=== PATIENT | female | born 1975 | race Caucasian/White ===

== ENCOUNTER 2016-09-05 14:37 | Emergency (ER) | payer MEDICAID ==
[~2016-09-05] VITALS: Ht 160 cm; Wt 72.5 kg
[~2016-09-05 14:37] MED LIST: ASPI-664 PO; ATOR80TA75 PO; LOSA25TA2 PO; METF1000 PO; OMEG-87 PO; SITA25TA3 PO
[2016-09-05 14:54] VITALS: Ht 160 cm; Wt 72.5 kg
[2016-09-05 15:45] LABS: BASOPHIL # 0.1 10^3/ul (0.0-0.1); BASOPHILS % 0.6 % (0.0-2.0); EOSINOPHILS # 0.1 10^3/ul (0.0-0.5); EOSINOPHILS % 1.3 % (0.0-7.0); HEMATOCRIT 40.1 % (37.0-47.0); LYMPHOCYTES # 3.5 10^3/ul (0.8-2.9); LYMPHOCYTES % 34.4 % (15.0-51.0); MEAN CORPUSCULAR HEMOGLOBIN 28.9 pg (29.0-33.0); MEAN CORPUSCULAR HGB CONC 34.9 g/dl (32.0-37.0); MEAN CORPUSCULAR VOLUME 82.9 fl (82.0-101.0); MEAN PLATELET VOLUME 8.8 fl (7.4-10.4); MONOCYTE # 0.9 10^3/ul (0.3-0.9); MONOCYTES % 8.8 % (0.0-11.0); NEUTROPHIL # 5.6 10^3/ul (1.6-7.5); NEUTROPHILS % 54.5 % (39.0-77.0); PLATELET COUNT 365 10^3/UL (140-415); RED BLOOD COUNT 4.84 10^6/ul (4.20-5.40); WHITE BLOOD COUNT 10.3 10^3/ul (4.8-10.8)
--- NOTE | 2016-09-05 15:48 | ERA ---
ER Documentation Chief Complaint Date/Time DATE: 09/05/16 TIME: 15:47 Chief Complaint LOWER BACK X 2WKS WORSE X2 DAYS HPI This is a 41-year-old female presenting with a chief complaint of left leg swelling and pain described as dull. No worsening or alleviating factors noted. Patient is also complaining of shortness of breath and general fatigue. Patient has medical history including HLD, HTN, diabetes mellitus type 2. Patient has not had similar symptoms in the past. Denies saddle parasthesia, incontinence, or RPND; Denies fever, chills, night sweats, weight loss, or increase symptoms at night. Patient denies history of cancer, HIV, IVDU, arthritis or recent surgeries. Patient has no other complaints and describes no other associated manifestations. ROS All systems reviewed and are negative except as per history of present illness. Medications Home Meds Active Scripts Ibuprofen* (Motrin*) 400 Mg Tab, 400 MG PO Q6, #30 TAB Prov:CONNIE VAZQUEZ PA-C 09/05/16 Sitagliptin* (Januvia*) 25 Mg Tablet, 25 MG PO DAILY, #30 TAB Prov:CHRIS SAENZ 10/28/15 Reported Medications Viola-3S/Dha/Epa/Fish Oil (FISH OIL DR 1,000 MG SOFTGEL) 1 Each Capsule.dr, 1 EACH PO DAILY 10/27/15 Aspirin (Low Dose Aspirin) 81 Mg Tablet.dr, 81 MG PO DAILY, #30 TAB 10/27/15 Metformin Hcl* (Metformin Hcl*) 1,000 Mg Tablet, 1000 MG PO WITH BREAKFAST DINNE , #30 TAB 10/27/15 Atorvastatin* (Atorvastatin*) 80 Mg Tablet, 80 MG PO QHS, #30 TAB 10/27/15 Losartan Potassium* (Cozaar*) 25 Mg Tablet, 25 MG PO DAILY, TAB 02/12/14 Allergies Allergies: Coded Allergies: No Known Allergy (Verified , 09/05/16) PMhx/Soc History of Surgery: Yes (cholecystectomy) Anesthesia Reaction: No Hx Neurological Disorder: No Hx Respiratory Disorders: No Hx Cardiac Disorders: Yes (htn, dyslipidemia, neg heart cath) Hx Psychiatric Problems: Yes (depression) Hx Miscellaneous Medical Probl: No Hx Alcohol Use: No Hx Substance Use: No Hx Tobacco Use: No Smoking Status: Never smoker Physical Exam Vitals Vital Signs Date Time Temp Pulse Resp B/P Pulse Ox O2 Delivery O2 Flow Rate FiO2 09/05/16 14:54 97.8 101 18 109/61 100 Physical Exam Const: Obese [place] 41-year-old female in no acute distress Head: Atraumatic Eyes: Normal Conjunctiva ENT: Normal External Ears, Nose and Mouth. Neck: Full range of motion..~ No meningismus. Resp: Clear to auscultation bilaterally. Equal chest expansion. Cardio: Regular rate and rhythm, no murmurs. Cap refill less than 2 seconds. Abd: Soft, non tender, non distended. Normal bowel sounds Skin: No petechiae or rashes Back: No midline or flank tenderness, no CVA tenderness Ext: Varicose veins on both legs bilaterally. Mild nonpitting edema of the left lower extremity. No distinguish palpable cord felt. No cyanosis. Neur: Awake and alert neurovascularly intact bilaterally. Psych: Normal Mood and Affect Result Diagram: 09/05/16 1533 09/05/16 1533 Results 24 hrs Laboratory Tests Test 09/05/16 14:55 09/05/16 15:33 Urine Color STRAW Urine Clarity CLEAR Urine pH 6.0 Urine Specific [place] 1.003 Urine Ketones NEGATIVEmg/dL Urine Nitrite NEGATIVEmg/dL Urine Bilirubin NEGATIVEmg/dL Urine Urobilinogen NEGATIVEmg/dL Urine Leukocyte Esterase NEGATIVELeu/ul Urine Microscopic RBC 0/HPF Urine Microscopic WBC 0/HPF Urine Bacteria FEW/HPF Urine Hemoglobin 2+mg/dL Urine Glucose 2+mg/dL Urine Total Protein NEGATIVEmg/dl Urine Test NEGATIVE White Blood Count 10.310^3/ul Red Blood Count 4.8410^6/ul Hemoglobin 14.0g/dl Hematocrit 40.1% Mean Corpuscular Volume 82.9fl Mean Corpuscular Hemoglobin 28.9pg Mean Corpuscular Hemoglobin Concent 34.9g/dl Red Cell Distribution Width 14.0% Platelet Count 60418^3/UL Mean Platelet Volume 8.8fl Neutrophils % 54.5% Lymphocytes % 34.4% Monocytes % 8.8% Eosinophils % 1.3% Basophils % 0.6% Nucleated Red Blood Cells % 0.0/100WBC Neutrophils # 5.610^3/ul Lymphocytes # 3.510^3/ul Monocytes # 0.910^3/ul Eosinophils # 0.110^3/ul Basophils # 0.110^3/ul Nucleated Red Blood Cells # 0.010^3/ul Prothrombin Time 14.2Sec Prothrombin Time Ratio 1.1 INR International Normalized Ratio 1.10 Activated Partial Thromboplast Time 25.8Sec Sodium Level 139mmol/L Potassium Level 3.8mmol/L Chloride Level 93mmol/L Carbon Dioxide Level 27mmol/L Anion Gap 23 Blood Urea Nitrogen 12mg/dl Creatinine 0.52mg/dl Glucose Level 151mg/dl Calcium Level 9.9mg/dl Current Medications Medications (Trade) Dose Ordered Sig/Renny Route PRN Reason Start Time Stop Time Status Last Admin Dose Admin Acetaminophen (Tylenol Tab) 650 mg ONCE ONCE PO 09/05/16 17:30 09/05/16 17:31 DC 09/05/16 17:20 IV Flush 10 ml 10 ml STK-MED ONCE .ROUTE 09/05/16 17:36 09/05/16 17:37 DC 09/05/16 17:50 Sodium Chloride (NS) 100 ml @ ud STK-MED ONCE .ROUTE 09/05/16 17:36 09/05/16 17:37 DC 09/05/16 17:50 Iodixanol (Visipaque Locm) 100 ml STK-MED ONCE .ROUTE 09/05/16 17:36 09/05/16 17:37 DC 09/05/16 17:50 Procedures/MDM 41-year-old female presenting with a chief complaints of pain in the legs. Physical examination was remarkable for mild swelling of the left lower extremity. Ultrasound was taken to rule out DVT. Ultrasound was read by the radiologist given the following impression: 1. Unremarkable CT pulmonary angiogram. No evidence for acute pulmonary arterial embolism. 2. Similar appearance of the 9 x 7 mm calcified granuloma within the right middle lobe and 3 mm calcified granuloma within the right hilum. 3. Diffuse fatty infiltration of the liver. . Patient also complained of slight shortness of breath that is chronic in nature over the past year, but due to swelling of leg, and lack of alternative diagnoses, a CTPA was taken that was read by the radiologist and given the impression of unremarkable. EKG was taken to rule out STEMI. My attending read the EKG as normal sinus rhythm, prolonged QT, but no ST elevation or depression and otherwise unremarkable. Patient is also complaining of back pain. Physical exam was unremarkable. Most likely diagnosis is varicose veins of the lower legs bilaterally, and strain versus sprain of lumbar spin. I will suspicion for neurovascular compromise of the back leg or pulmonary system. Low suspicion for airway compromise, acute coronary syndrome, venous thromboembolism, esophageal rupture, cauda equina. or CHF exacerbation. I have spoke with the patient regarding their condition and future management. They have verbally responded that they understand their status and treatment plan. The patients vitals are stable, and their current condition is appropriate for discharge. The patient will be given discharge instructions with return precautions. Departure Diagnosis: Primary Impression: Varicose vein of leg Additional Impression: Back pain Qualified Code: M54.5 - Acute bilateral low back pain without sciatica Condition: Stable Additional Instructions: Follow up with your PCP within the next 1-3 days for a more thorough evaluation and a possible referral to a specialist. Return the the emergency department immediately if symptoms worsen or change. If you have any questions regarding medications, ask your pharmacist or us before you leave. If any adverse reactions occur while taking your medications, discontinue the treatment and return to the emergency department immediately. Take your medications as directed, and complete the entire course of treatment. CONNIE VAZQUEZ PA-C Sep 05, 2016 15:48
--- NOTE | 2016-09-05 15:59 | RADRPT ---
PROCEDURE: Ultrasound of the left lower extremity venous system. CLINICAL INDICATION: Left leg pain and swelling, deep venous thrombosis TECHNIQUE: Samaniego scale with and without compression, color doppler, spectral doppler of the venous system of the left lower extremity was performed. Venous augmentation maneuvers were utilized. COMPARISON: 10/27/2015 FINDINGS: Common femoral vein: Patent. Femoral vein: Patent. Popliteal vein: Patent. Calf veins: Patent. No soft tissue abnormalities are identified. IMPRESSION: No evidence of a deep vein thrombosis within the left lower extremity. RPTAT: AADD .Edin Anaya MD, MD Date Time Electronically viewed and signed by .Edin Anaya MD, MD on 09/05/2016 15:59 .B/
[2016-09-05 16:06] LABS: CALCIUM 9.9 mg/dl (8.4-10.2); CREATININE 0.52 mg/dl (0.44-1.00); POTASSIUM 3.8 mmol/L (3.5-5.1)
[2016-09-05 16:35] LABS: ADD UMIC YES; UR ASCORBIC ACID NEGATIVE (NEGATIVE); UR BACTERIA FEW /HPF (NONE SEEN); UR BILIRUBIN (Dip) NEGATIVE (NEGATIVE); UR BLOOD (Dip) 2+ mg/dL (NEGATIVE); UR CLARITY CLEAR (CLEAR); UR COLOR STRAW (YELLOW); UR GLUCOSE (Dip) 2+ mg/dL (NEGATIVE); UR KETONES (Dip) NEGATIVE (NEGATIVE); UR LEUKOCYTE ESTERASE (Dip) NEGATIVE Leu/ul (NEGATIVE); UR NITRITE (Dip) NEGATIVE (NEGATIVE); UR RBC 0 /HPF (0-5); UR SPECIFIC GRAVITY (Dip) 1.003 (1.003-1.030); UR TOTAL PROTEIN (Dip) NEGATIVE (NEGATIVE); UR UROBILINOGEN (Dip) NEGATIVE (NEGATIVE)
[2016-09-05 17:00] LABS: INR 1.1; PROTIME 14.2 Sec (12.2-14.2); PT RATIO 1.1
[2016-09-05 17:01] LABS: PARTIAL THROMBOPLASTIN TIME 25.8 Sec (25.0-35.0)
[2016-09-05] MEDS ORDERED: ACETAMINOPHEN 325 MG TAB PO ONE (17:30)
[2016-09-05] MEDS ORDERED: SOD CHLORIDE 0.9% 100 ML ONE (17:36)
[2016-09-05] MEDS ORDERED: IODIXANOL LOCM 100 ML BTL ONE (17:36)
[2016-09-05] MEDS ORDERED: IBUP400T22 PO (17:58)
--- NOTE | 2016-09-05 18:03 | RADRPT ---
PROCEDURE: CTA Chest and pulmonary angiogram. CLINICAL INDICATION: Shortness of breath, evaluate for pulmonary embolism. TECHNIQUE: CT scan of the chest and CT pulmonary angiogram was performed. High-resolution thin sl ice coronal and sagittal imaging was obtained from the axial source images. 3-D volumetric rendered post processing was performed as well. The patient was examined following the uncomplicated intrav enous administration of 100 ml of Visipaque 320. The images were reviewed on a PACS workstation. The total exam DLP equals 436 mGy-cm. One or more of the following dose reduction techniques were used: Automated exposure control Adjustment of the mA and/or kV according to patient size. Use of iterative reconstruction technique. COMPARISON: Chest radiograph from 04/03/2014, CT abdomen/pelvis from 03/21/2014 FINDINGS: CT pulmonary angiogram: There is adequate contrast opacification of the pulmonary arterial system. Examination of the main a nd segmental bilateral pulmonary arteries demonstrates no evidence of filling defects or abnormal ta pering. Caliber is normal throughout bilateral pulmonary arteries and branches. The main pulmonary artery is normal in caliber. CT chest: There is a calcified granuloma within the right middle lobe measuring about 9 x7 mm, also seen on th e prior CT abdomen/pelvis from 03/21/2014. There is mild right greater than left basilar atelectasi s. There is no focal consolidation, pleural effusion, or pneumothorax. The central tracheobronchia l tree is clear. The thyroid gland is unremarkable. There is no mediastinal, hilar, or axillary lymphadenopathy. There is also a small 3 mm calcified ly mph node within the right hilum. The aorta and its branches are normal in course and caliber. The heart size is within normal limits. There is no pericardial effusion. The axillary, subpectoral, and supraclavicular regions are unremarkable. There is diffuse fatty infiltration of the liver. Cholecystectomy clips are visualized. The surrounding chest wall is unremarkable. The osseous structures are remarkable for degenerative spondylosis of the spine. There is partial osseous fusion of the T3 and T4 vertebral bodies with dec reased AP diameter of these vertebral bodies. There are no acute fractures. RPTAT: QQ IMPRESSION: 1. Unremarkable CT pulmonary angiogram. No evidence for acute pulmonary arterial embolism. 2. Similar appearance of the 9 x 7 mm calcified granuloma within the right middle lobe and 3 mm helena cified granuloma within the right hilum. 3. Diffuse fatty infiltration of the liver. .Nargis Mcneill MD, Date Time Electronically viewed and signed by .Nargis Mcneill MD, MD on 09/05/2016 18:03 .T/
== END 2016-09-05 18:26 | disposition home or self-care (01) ==
LOC: FTE 14:37
DX: I83.92 Asymptomatic varicose veins of left lower extremity (principal); M54.5 Low back pain; I10 Essential (primary) hypertension; E11.9 Type 2 diabetes mellitus without complications; R06.02 Shortness of breath; Z79.82 Long term (current) use of aspirin; Z79.84 Long term (current) use of oral hypoglycemic drugs
CPT/HCPCS: 71275; 80048; 81001; 84703; 85025; 85610; 85730; 93005; 93971; Q9967; Z7502; Z7610